=== PATIENT | male | born 1955 | race Caucasian/White ===

== ENCOUNTER 2017-06-03 06:11 | Day surgery (SDC) | payer OTHER ==
[2017-06-03] MEDS ORDERED: ceFAZolin 2 GM in 100 MLS NS (*) BAG IVPB ONE (06:13)
[2017-06-03] MEDS ORDERED: Lidocaine 1% INJ* 10 MG/ML 30 ML SDV ONE (07:03)
[2017-06-03] MEDS ORDERED: Naloxone* 0.4 MG/ML 1 ML VIAL IV PRN (07:37)
[2017-06-03] MEDS ORDERED: Midazolam* 1 MG/ML 2 ML VIAL (2 MG) ONE ×2 (07:46→08:04)
[2017-06-03] MEDS ORDERED: fentaNYL* 50 MCG/ML 2 ML VIAL (100 MCG VIAL) ONE (07:47)
--- NOTE | 2017-06-03 09:10 | RAD ---
INDICATION: Status post right subclavian vein Mediport placement. COMPARISON: Most recent chest x-rays dated February 29, 2004 TECHNIQUE: Single AP portable view of the chest was obtained. FINDINGS: Image quality is compromised due to the relative inferiority of a portable chest x-ray. There is been interval placement of a right subclavian vein Mediport with the tip terminating at the superior vena cava. The heart and mediastinum exhibit normal size and contour. The lungs are grossly clear. There is no evidence of a large pleural effusion. Visualized bones are normal for the patient's age. IMPRESSION: Interval placement of a right subclavian vein Mediport without acute findings.
[2017-06-03 09:18] VITALS: BP 120/76
--- NOTE | 2017-06-03 12:03 | RAD ---
CPT II Codes: 6045F INDICATION: Colon cancer TECHNIQUE: Intraoperative fluoroscopy was provided during right subclavian vein Mediport placement. FINDINGS: A single spot film depicts a Mediport overlying the right upper chest with the catheter terminating at the cavoatrial junction. Fluoroscopy time: 4.1 seconds IMPRESSION: As above.
--- NOTE | 2017-06-03 23:50 | OP ---
CC: Dr. Flowers; Dr. Mercer; Dr. Donovan * DATE OF OPERATION: 06/03/17 - [facility] DATE OF : 57 SURGEON: Vki Vora MD ALGORITHM DEVELOPER: None. ANESTHESIOLOGIST: Dr. Jones. ANESTHESIA: LMAC anesthesia. PRE-OP DIAGNOSIS: Rectal carcinoma. POST-OP DIAGNOSIS: Rectal carcinoma. OPERATIVE PROCEDURE: Placement of right subclavian 8-[place] Power[employer]. DESCRIPTION OF PROCEDURE: The patient was supine on the operative table. After adequate intravenous sedation, compression stockings, Low Hugger warmer, and intravenous antibiotics, the right chest and neck region were prepped with antiseptic, draped in a sterile fashion. Local infiltrative anesthesia was administered. Approximately 3 cm incision was created. Inferior pocket was created. Subclavian venipuncture was carried out. Guidewire was passed through the peel-away introducer. Catheter was measured and cut at 23 cm, attached to the port, which was sutured in the pocket with 2-0 Prolene. Pocket was closed with 3-0 and 5-0 Vicryl followed by Steri-Strips. The port was accessed. There was good blood return. It was flushed with saline solution and heparinized solution and then covered with a Tegaderm. Fluoroscopy showed good position. Everything was in good condition and he was awakened and brought to Recovery in good condition. There are no complications. No drains. No pathologic specimens. Sponge and instrument counts correct. Estimated blood loss 10 mL. [id number]/CPS #: [id number] MTDD
== END 2017-06-03 09:42 | disposition home or self-care (01) ==
LOC: OR 06:11
PROVIDERS: ATTEND Surgery
DX: C20 Malignant neoplasm of rectum (principal); J45.909 Unspecified asthma, uncomplicated
CPT/HCPCS: 71045; 76000; C1788; J1642; J2250; J3010